=== PATIENT | female | born 1950 | race Asian ===

== ENCOUNTER 2021-04-02 17:16 | Inpatient (IN) | payer MEDICARE ==
[~2021-04-02] VITALS: Ht 165.1 cm; Wt 44.5 kg
[2021-04-02] MEDS ORDERED: IV NORMAL SALINE 500 ML BAG IV ONE (17:30)
--- NOTE | 2021-04-02 17:30 | NUR ---
Patient is AOx4, c/o progressive shortness of breath for about 2 weeks with generalized weakness, speaks full sentences, denies chest pains, skin warm, dry & pale, afebrile.
[2021-04-02] MEDS ORDERED: AUGMENTIN PO (17:45)
[2021-04-02 17:56] LABS: HEMATOCRIT 38.6 % (31.2-41.9); MEAN CORPUSCULAR VOLUME 101.1 fL (75.5-95.3); PLATELET COUNT (AUTO) 153 K/uL (179-408)
[2021-04-02 18:03] LABS: CARBON DIOXIDE 32 mmol/L (21-32); CHLORIDE 109 mmol/L (98-107); CREATININE 0.8 mg/dL (0.6-1.3); GLUCOSE 90 mg/dL (74-106); POTASSIUM 4.7 mmol/L (3.5-5.1); UREA NITROGEN, BLOOD 62 mg/dL (7-18)
--- NOTE | 2021-04-02 18:11 | NUR ---
Patient c/o sudden shortness of breath, unable to speak comfortably, SPO2=88% room air, MD notified. Oxygen supplement started. Maintained on continuous cardiac, SpO2 monitors with alarms set,on & audible.
[2021-04-02 18:16] LABS: ALANINE AMINOTRANSFERASE 241 U/L (14-59); ALKALINE PHOSPHATASE 160 U/L (50-136); ASPARTATE AMINOTRANSFERASE 229 U/L (15-37); BILIRUBIN,DIRECT 0.1 mg/dL (0.0-0.2); BILIRUBIN,TOTAL 0.3 mg/dL (0.2-1.0); TOTAL PROTEIN, SERUM 6.6 g/dL (6.4-8.2)
--- NOTE | 2021-04-02 18:28 | NUR ---
Patient c/o sudden shortness of breath again, MD@bedside. SsY9=298% with 2 liters by nasal cannula.
[2021-04-02] MEDS ORDERED: SWABABLE VALVE TRANSFER SET EA MC ONE (18:44)
[2021-04-02] MEDS ORDERED: IV NORMAL SALINE 250 ML IV ONE (18:45)
[2021-04-02] MEDS ORDERED: IOHEXOL 350 100 ML INFUS..BTL ONE (18:45)
[2021-04-02] MEDS ORDERED: IV NORMAL SALINE 1000 ML BAG IV ONE (18:45)
--- NOTE | 2021-04-02 18:54 | NUR ---
Patient is on bedpan, for CT scan@this time. Patient signed the [employer]SENT at 1841.
--- NOTE | 2021-04-02 19:24 | NUR ---
Patient is back from CT scan with IV fluid is still infusing. Patient was unable to void via bedpan per electronic bench technician Bryson. Patient is still waiting for registry nurse Bhanu (7pm ER nurse assigned bartolome). Nursing SBAR was given to rn discharge Adrian instead.
--- NOTE | 2021-04-02 20:41 | NUR ---
Epic panel call placed, spoke to Elizabeth , she stated she will get a hold of Dr. Santa for admitting.
[2021-04-02] MEDS ORDERED: levoFLOXacin 750 MG/D5W 150 ML PIGGYBACK IV ONE (20:45)
[2021-04-02] MEDS ORDERED: levoFLOXacin 750MG/D5W 150 ML IV ONE (20:46)
--- NOTE | 2021-04-02 21:51 | NUR ---
calling 3rd floor to give report. Mono reveicing report.
--- NOTE | 2021-04-02 21:59 | NUR ---
Just gave thorough report to Mono DUONG using SBAR method. Mono asked to collect a UA specimen, so I deirdre collect sample from doll in the commode. Will be transporting as soon as pt is rolled over. VSYemi, 139/69
[2021-04-02] MEDS ORDERED: ONDANSETRON 4 MG/2 ML VIAL IV PRN (22:00)
[2021-04-02] MEDS ORDERED: ACETAMINOPHEN 325 MG TABLET PO PRN (22:00)
[2021-04-02] MEDS ORDERED: HYDROCODONE/APAP 5-325MG TABLET PO PRN (22:00)
[2021-04-02] MEDS ORDERED: MAGNESIUM HYDROXIDE 30 ML LIQUID UDC PO PRN (22:00)
[2021-04-02] MEDS ORDERED: ALBUTEROL SULFATE 2.5 MG/3 ML NEBU NEB PRN (22:00)
[2021-04-02 22:15] LABS: *BILIRUBIN,URIN NEGATIVE (NEGATIVE); *CLARITY,URINE CLEAR (CLEAR); *COLOR,URINE YELLOW (YELLOW); *KETONES,URINE TRACE (NEGATIVE); *UROBILINOGEN,URINE 0.2 E.U./dl (NORMAL); LEUKOCYTE ESTERASE ,URINE NEGATIVE (NEGATIVE); NITRITE, URINE NEGATIVE (NEGATIVE); UGLUCOSE NEGATIVE (NEGATIVE)
--- NOTE | 2021-04-02 22:15 | NUR ---
Levofloxacin endtime at 2215 on 04/02/21
--- NOTE | 2021-04-02 22:22 | NUR ---
107/65, 95%RA, 78bpm, 16rpm. AAOx4, completely lucid and able to carry conversation. Very pleasant pt, oxygenating and perfusing well on RA, no complaints of sob, pain, dizziness, n/v or discomfort. Pt ready to push upstairs. UA specimen collected and pt given a dinner tray to be eaten upstairs in her room. Will be transporting now.
[2021-04-02 22:24] LABS: *BLOOD, URINE TRACE (NEGATIVE)
[2021-04-02 22:25] LABS: BACTERIA,URINE NONE SEEN /HPF (NONE SEEN); RBC,URINE 0-3 /HPF (0-3); SQUAMOUS EPITHELIAL CELL,UR FEW /HPF (NONE SEEN); WBC,URINE NONE SEEN /HPF (0-3)
--- NOTE | 2021-04-02 22:42 | NUR ---
Pt tranported and placed on hospital bed with assistance of myself and BANQUET CHEF. BANQUET CHEF at bedside to obtain VS. Pt in pos of comfort.
[2021-04-02] MEDS ORDERED: TEMAZEPAM 7.5 MG CAPSULE PO PRN (22:45)
[2021-04-02 23:29] VITALS: BP 112/81
[2021-04-02] MEDS ORDERED: AZITHROMYCIN 500MG/ D5W 250ML IVPB **ER PYXIS ONLY IV ONE (23:29)
[2021-04-02] MEDS ORDERED: CEFTRIAXONE /D5W 50ML IVPB **ER PYXIS IV ONE (23:29)
[2021-04-02] MEDS: CEFTRIAXONE 1 G in IV DEXTROSE 5% 50 ML IV SCH (23:42)
--- NOTE | 2021-04-02 23:55 | NUR ---
Admitted patient to Tele unit from Er via neli accompanied by Er nurse.DX of PNA and mild resp.failure. Patient AALOx4. Denies pain or SOB at this time. On Ra. No s/s of distress noted.IV on Right Fa patent and intact. Adm IV ATb . No a/r noted.Patient expresses of wanting to go home.Stated to call her BF so he could pick her up.Risk and benefits explained .Patient agreed to stay and will wait to see the MD in the morning.Call light with in reach.Will continue to monitor.
[2021-04-03] MEDS: AZITHROMYCIN IV 500 MG in IV DEXTROSE 5% 250 ML IV SCH ×2 (00:02→21:24)
[2021-04-03] MEDS: IV NS 1000 ML 1,000 ML IV PRN ×2 (00:30→12:16)
[2021-04-03 04:00] VITALS: BP 90/61
[2021-04-03] MEDS: PANTOPRAZOLE SODIUM 40 MG TABLET.DR PO SCH (06:17)
[2021-04-03 07:23] LABS: HEMATOCRIT 33.6 % (31.2-41.9); MEAN CORPUSCULAR HEMOGLOBIN 33.4 uug (24.7-32.8); MEAN CORPUSCULAR VOLUME 100.7 fL (75.5-95.3); PLATELET COUNT (AUTO) 126 K/uL (179-408)
[2021-04-03 08:24] LABS: THYROID STIMULATING HORMONE 2.656 mIU/mL (0.358-3.740)
[2021-04-03 08:36] LABS: BILIRUBIN,TOTAL 0.2 mg/dL (0.2-1.0); CREATININE 0.6 mg/dL (0.6-1.3); MAGNESIUM 1.8 mg/dL (1.8-2.4); PHOSPHOROUS 2.1 mg/dL (2.5-4.9); POTASSIUM 3.6 mmol/L (3.5-5.1); TOTAL PROTEIN, SERUM 5.5 g/dL (6.4-8.2)
[2021-04-03 09:56] VITALS: BP 143/96
[2021-04-03] MEDS ORDERED: POTASSIUM PHOSPHATE MM 7.5 MMOL in IV NORMAL SALINE 97.5 ML IV ONE (11:30)
[2021-04-03 12:00] VITALS: BP 146/95
[2021-04-03 12:34] LABS: *RHEUMATOID FACTOR SCREEN NEGATIVE (NEGATIVE)
--- NOTE | 2021-04-03 14:47 | NUR ---
sent request for [facility] records of thymus surgery.
--- NOTE | 2021-04-03 15:50 | NUR ---
Social Work Clinical Note: JONATHON was unable to assess pt and continued to gather further information from pt's significant other, Sony ([phone]). Sony stated that he would like the pt to discharge home upon discharge to [address] [place] [address]. Sony stated he has been taking care of the pt for the past year and will continue to do so. Sony stated they do not need anything upon discharge and do not require any additional help as of now. Sony was informed that he can discuss further questions upon discharge with the pt's nurse and social organization professor. Sony stated he is available for further questions and assistance needed.
--- NOTE | 2021-04-03 15:53 | NUR ---
patient requesting to leave against medical advice, explained risk and benefits, patient spoke with Sony significant other and patient decided to stay. informed MD Dr. Mathias
[2021-04-03 16:00] VITALS: BP 107/77
[2021-04-03 20:00] VITALS: BP 123/86
[2021-04-03] MEDS: CEFTRIAXONE 1 G in IV DEXTROSE 5% 50 ML IV SCH (23:01)
[2021-04-04] VITALS: BP 121/74
[2021-04-04 04:06] LABS: HEPATITIS B SURFACE AG Negative (Negative)
--- NOTE | 2021-04-04 05:26 | NUR ---
Pt slept intermittently. Able to make needs known, confused at times. Pt somewhat forgetful forgetting where she is. Able to be reoriented. IV site intact. SR on monitor. Safety maintained. Will endorse to day shift.
[2021-04-04] MEDS: PANTOPRAZOLE SODIUM 40 MG TABLET.DR PO SCH (06:06)
[2021-04-04] MEDS: IV NS 1000 ML 1,000 ML IV PRN (06:17)
[2021-04-04] MEDS ORDERED: SWABABLE VALVE TRANSFER SET EA MC ONE (08:05)
[2021-04-04] MEDS ORDERED: IV NORMAL SALINE 250 ML IV ONE (08:05)
[2021-04-04] MEDS ORDERED: IOHEXOL 300MG/ML 100 ML INFUS..BTL ONE (08:05)
[2021-04-04 08:06] LABS: *ANTI-SCLERODERMA-70 AB <0.2 AI (0.0-0.9); *SJOGREN'S ANTI-SS-A <0.2 AI (0.0-0.9); *SJOGREN'S ANTI-SS-B <0.2 AI (0.0-0.9); *SMITH ANTIBODIES <0.2 AI (0.0-0.9); ANTI-DNA(DS) AB, QN <1 IU/mL (0-9)
[2021-04-04] MEDS ORDERED: AMOX-430 PO (12:41)
[2021-04-04 13:11] VITALS: BP 99/60
--- NOTE | 2021-04-04 13:51 | NUR ---
dc orders received noted and carried out,dc heplock per md orders,dc instruction and education given to the pt and her family .pt left the facility via private car in stable condition
== END 2021-04-04 13:58 | disposition home or self-care (01) | DRG 193 ==
LOC: ER 17:19 → TELE3 22:21
PROVIDERS: ADMIT Internal Medicine; ATTEND Internal Medicine
DX: J18.9 Pneumonia, unspecified organism (principal); G92.8 Other toxic encephalopathy; E43 Unspecified severe protein-calorie malnutrition; J96.01 Acute respiratory failure with hypoxia; N13.30 Unspecified hydronephrosis; D61.818 Other pancytopenia; E89.89 Other postprocedural endocrine and metabolic complications and disorders; Z68.1 Body mass index [BMI] 19.9 or less, adult; E87.0 Hyperosmolality and hypernatremia; Z20.822 Contact with and (suspected) exposure to COVID-19; E88.09 Other disorders of plasma-protein metabolism, not elsewhere classified; R74.01 Elevation of levels of liver transaminase levels; N28.1 Cyst of kidney, acquired; R62.7 Adult failure to thrive; E78.5 Hyperlipidemia, unspecified; R94.31 Abnormal electrocardiogram [ECG] [EKG]; R93.5 Abnormal findings on diagnostic imaging of other abdominal regions, including retroperitoneum; I77.819 Aortic ectasia, unspecified site
CPT/HCPCS: 36415; 70030-TC; 71045; 71275; 82378; 82747; 83550; 83605; 83735; 84100; 84443; 85014; 85025; 85730; 86038; 86430; 86706; 86803; 87040; 87086; 87340; 93005; 97161; A4663; G0378; J0456; J0696; J1956; J3490; J7030; J7040; J7050; J7060; Q9967; U0003